=== PATIENT | female | born 1970 | race Caucasian/White ===

== ENCOUNTER 2022-04-27 15:52 | Emergency (ER) | payer BC, MEDICAID ==
[~2022-04-27] VITALS: Ht 167.6 cm; Wt 68.0 kg
[2022-04-27 15:52] VITALS: BP 178/97
--- NOTE | 2022-04-27 16:49 | NUR ---
ULTRASOUND AT BEDSIDE.
[2022-04-27] MEDS ORDERED: HYDR-3965 PO (16:53)
[2022-04-27] MEDS ORDERED: IBUP-1986 PO (16:53)
[2022-04-27] MEDS ORDERED: ketorolac trometh inj. 60 MG/2 ML VIAL IM ONE (17:00)
== END 2022-04-27 17:16 | disposition home or self-care (01) ==
LOC: ER 15:54
DX: S30.1XXA Contusion of abdominal wall, initial encounter (principal); Z88.8 Allergy status to other drugs, medicaments and biological substances; Z88.0 Allergy status to penicillin; Z79.899 Other long term (current) drug therapy; Z79.2 Long term (current) use of antibiotics; W18.39XA Other fall on same level, initial encounter; Y93.89 Activity, other specified; Y92.89 Other specified places as the place of occurrence of the external cause; Y99.8 Other external cause status
CPT/HCPCS: 76705; 96372; 99284; J1885

== ENCOUNTER 2023-03-15 09:07 | Emergency (ER) | payer BC ==
[~2023-03-15] VITALS: Ht 167.6 cm; Wt 73.4 kg
[~2023-03-15 09:07] MED LIST: IBUP-1986 PO
[2023-03-15 09:10] VITALS: TEMP 97.4
[2023-03-15] MEDS ORDERED: ipratropium/albuterol 3ml nebule NEB ONE (09:50)
[2023-03-15 10:14] VITALS: PULSE 71; RESP 20; O2SAT 97
[2023-03-15 10:22] LABS: BASOPHILS % (AUTO) 0.2 % (0-1); EOSINOPHILS # (AUTO) 0.6 X10'3 (0-0.9); EOSINOPHILS % (AUTO) 6.7 % (0-6); HEMATOCRIT 42.7 % (35.0-45.0); HEMOGLOBIN 14.6 g/dl (12.0-16.0); LYMPHOCYTES # (AUTO) 2.7 X10'3 (1.1-4.8); LYMPHOCYTES % (AUTO) 30.9 % (21-51); MEAN CORPUSCULAR HEMOGLOBIN 32.3 PG (27.0-31.0); MEAN CORPUSCULAR HGB CONC 34.2 g/dL (33.0-36.5); MEAN CORPUSCULAR VOLUME 94.5 FL (78-98); MEAN PLATELET VOLUME 7.6 FL (7.4-10.4); MONOCYTES # (AUTO) 0.7 X10'3 (0-0.9); MONOCYTES % (AUTO) 7.6 % (2-12); NEUTROPHILS # (AUTO) 4.7 X10'3 (1.8-7.7); NEUTROPHILS % (AUTO) 54.6 % (42-75); PLATELET COUNT 357 X10'3 (140-440); RED BLOOD COUNT 4.52 X10'6 (4.20-5.60); RED CELL DISTRIBUTION WIDTH 13.9 % (11.5-14.5); WHITE BLOOD COUNT 8.6 X10'3 (4.5-11.0)
[2023-03-15 10:26] VITALS: PULSE 79; RESP 18
[2023-03-15 10:34] LABS: ALANINE AMINOTRANSFERASE 25 U/L (12-78); ALBUMIN 4.1 G/DL (3.4-5.0); ALBUMIN/GLOBULIN RATIO 1.2 (1.1-1.5); ALKALINE PHOSPHATASE 89 IU/L (46-116); ANION GAP 10 (8-16); ASPARTATE AMINO TRANSFERASE 17 U/L (10-37); BILIRUBIN,TOTAL 0.6 MG/DL (0.1-1.0); BLOOD UREA NITROGEN 11 MG/DL (7-18); BUN/CREATININE RATIO 13.1 (10.0-20.0); CALCIUM 9.8 MG/DL (8.5-10.1); CHLORIDE 106 MMOL/L (99-107); CREATININE 0.84 MG/DL (0.40-0.90); GLUCOSE 98 MG/DL (70-104); POTASSIUM 3.4 MMOL/L (3.5-5.1); SODIUM 141 MMOL/L (135-145); TOTAL CARBON DIOXIDE 25.1 MMOL/L (24-32); TOTAL PROTEIN 7.6 G/DL (6.4-8.2); eCRCL 73 ML/MIN; eGFR 71 ML/MIN
[2023-03-15 10:43] LABS: PRO BRAIN NATRIURETIC PEPTIDE 69 PG/ML (0-125)
[2023-03-15] MEDS ORDERED: PRED20TA PO (13:42)
[2023-03-15 14:00] VITALS: BP 140/86; PULSE 75; RESP 16; O2SAT 98
== END 2023-03-15 14:02 | disposition home or self-care (01) ==
LOC: ER 09:07
DX: R05.3 Chronic cough (principal); Z20.822 Contact with and (suspected) exposure to COVID-19; F17.200 Nicotine dependence, unspecified, uncomplicated; Z88.8 Allergy status to other drugs, medicaments and biological substances; Z88.0 Allergy status to penicillin
CPT/HCPCS: 36415; 71045; 80053; 83880; 84484; 85025; 87502; 87503; 87811; 93005; 94640; 94760; 99285

== ENCOUNTER 2023-07-25 20:43 | Emergency (ER) | payer BC ==
[~2023-07-25] VITALS: Ht 167.6 cm; Wt 73.6 kg
[~2023-07-25 20:43] MED LIST changes: +PRED20TA PO
[2023-07-25 20:47] VITALS: BP 126/72; PULSE 93; O2SAT 96
[2023-07-25] MEDS: ondansetron 4mg rapidly disintigrating tab PO ONE (21:38)
[2023-07-25] MEDS: oxyCODONE/APAP 10/325mg tablet PO ONE (21:38)
[2023-07-25 21:52] VITALS: RESP 16
[2023-07-25] MEDS ORDERED: ONDA4TAB12 PO (22:11)
[2023-07-25] MEDS ORDERED: HYDR-3973 PO (22:11)
[2023-07-26 03:27] VITALS: TEMP 98.3
== END 2023-07-26 03:30 | disposition home or self-care (01) ==
LOC: ER 20:44
DX: S42.332A Displaced oblique fracture of shaft of humerus, left arm, initial encounter for closed fracture (principal); K59.00 Constipation, unspecified; Z72.89 Other problems related to lifestyle; Z88.0 Allergy status to penicillin; Z79.52 Long term (current) use of systemic steroids; Z79.1 Long term (current) use of non-steroidal anti-inflammatories (NSAID); W18.30XA Fall on same level, unspecified, initial encounter; Y93.89 Activity, other specified; Y92.89 Other specified places as the place of occurrence of the external cause; Y99.8 Other external cause status
CPT/HCPCS: 29105; 29125; 73060; 99283; 99284; A6446; A6449